=== PATIENT | female | born 1955 | race Caucasian/White ===

== ENCOUNTER 2017-09-03 16:55 | Emergency (ER) | payer SELFPAY ==
[~2017-09-03] VITALS: Ht 157.5 cm; Wt 60.0 kg
[2017-09-03 17:03] VITALS: BP 172/91; PULSE 83; RESP 17; TEMP 98.6; O2SAT 100
--- NOTE | 2017-09-03 17:12 | PD ---
HPI Chief Complaint: Fall Time Seen by Provider: 17:05 Travel History International Travel<30 days: No Contact w/Intl Traveler<30days: No Traveled to known affect area: No History of Present Illness HPI 62-year-old female presents emergency department following a trip and fall. Patient states that her foot got caught and she tripped and fell. She did fall , striking her head. She did not lose consciousness. She does report left hip pain. She did strike the left side of her head. She denies any nausea or vomiting. She denies any chest pain or tightness. Patient does report the pain as a moderate, constant pain. It does not radiate anywhere. She denies any other symptoms at this time. [facility] Past Medical History Medical History: Denies Significant Hx ?: Unknown Social History Tobacco Use: No Allergies-Medications (Allergen,Severity, Reaction): Coded Allergies: No Known Allergies (Unverified , 09/03/17) Reported Meds & Prescriptions Reported Meds & Active Scripts Active Robaxin (Methocarbamol) 500 Mg Tab 500 Mg PO QID PRN Ibuprofen 600 Mg Tab 600 Mg PO Q8H PRN Reported Hydrochlorothiazide 25 Mg Tab 25 Mg PO DAILY Review of Systems Except as stated in HPI: all other systems reviewed are Neg Physical Exam Narrative GENERAL: Well-nourished, well-developed elderly female patient in no acute distress SKIN: Focused skin assessment warm/dry. HEAD: Normocephalic. Abrasion/hematoma to the left temporal scalp EYES: No scleral icterus. No injection or drainage. EOMI. PERRLA NECK: Supple, trachea midline. No JVD or lymphadenopathy. CARDIOVASCULAR: Regular rate and rhythm RESPIRATORY: Breath sounds equal bilaterally. No accessory muscle use. GASTROINTESTINAL: Abdomen soft, non-tender, nondistended. MUSCULOSKELETAL: No cyanosis, or edema. 5+ strength equal bilateral extremities. Tenderness elicited palpation over the anterior lateral left hip. No deformity. No shortening or rotation. Distal pulses are palpable. Cap refills within normal limits. BACK: Nontender without obvious deformity. No CVA tenderness. Data Data Last Documented VS Vital Signs Date Time Temp Pulse Resp B/P (MAP) Pulse Ox O2 Delivery O2 Flow Rate FiO2 09/03/17 21:40 09/03/17 18:46 75 18 98 Room Air 09/03/17 17:03 98.6 Orders Orders Hip, Uni(Ap&Lat) W Ap Pelvis (09/03/17 ) Ct Brain W/O Iv Contrast(Rout) (09/03/17 ) Ct Cerv Spine W/O Contrast (09/03/17 ) Ketorolac Inj (Toradol Inj) (09/03/17 17:45) Sodium Chlorid 0.9% 500 Ml Inj (Ns 500 M (09/03/17 17:45) Acetaminophen (Tylenol) (09/03/17 18:45) Ed Discharge Order (09/03/17 18:34) MDM Medical Decision Making Medical Screen Exam Complete: Yes Emergency Medical Condition: Yes Medical Record Reviewed: Yes Differential Diagnosis Fracture versus contusion versus dislocation versus intracranial hemorrhage versus concussion versus skull fracture Narrative Course 62-year-old female presents emergency department for evaluation following a trip and fall. Patient appears without distress. Her vital signs are stable. Last Impressions Hip and Pelvis X-Ray 09/03/17 0000 Signed Impressions: CONCLUSION: Negative for acute process. Head CT 09/03/17 0000 Signed Impressions: CONCLUSION: No acute intracranial abnormality is identified. Cervical Spine CT 09/03/17 0000 Addendum Impressions: CONCLUSION: 1. Mild degenerative changes about fracture. 2. Lung apex clear. Diagnosis Primary Impression: Minor head injury Qualified Codes: S09.90XA - Unspecified injury of head, initial encounter Additional Impression: Fall Qualified Codes: W19.XXXA - Unspecified fall, initial encounter Referrals: Primary Care Physician Patient Instructions: General Instructions, Head Injury (ED) Departure Forms: Tests/Procedures, Work Release Enter return to work date: Sep 06, 2017 Additional Instructions: Ice to the affected area. Avoid direct contact with your skin Follow-up with a primary care provider Rest Avoid prolonged bedrest Return immediately to emergency department with any acute worsening symptoms Med/Other Pt SpecificInfo: Prescription(s) given Scripts Methocarbamol (Robaxin) 500 Mg Tab 500 MG PO QID Y for MUSCLE SPASM, #20 TAB 0 Refills Prov: Jeanette Ascencio 09/03/17 Ibuprofen (Ibuprofen) 600 Mg Tab 600 MG PO Q8H Y for PAIN, #30 TAB 0 Refills Prov: Jeanette Ascencio 09/03/17 Disposition: 01 DISCHARGE HOME Condition: Stable Jeanette Ascencio September 03, 2017 17:12
[2017-09-03] MEDS ORDERED: KETOROLAC TROMETHAMINE 30 MG/ML (IVP) VIAL IV PUSH ONE (17:45)
[2017-09-03] MEDS ORDERED: SODIUM CHLORID 0.9% 500 ML INJ 500 ML IV ONE (17:45)
[2017-09-03] MEDS ORDERED: HYDR25TA5 PO (17:49)
--- NOTE | 2017-09-03 17:58 | RADRPT ---
EXAM DATE: 09/03/2017 5:45 PM EDT AGE/SEX: 62 years / Female INDICATIONS: Fall, pain in left hip. CLINICAL DATA: This is the patient's initial encounter. Patient reports that signs and symptoms have been present for 1 day and indicates a pain score of 3/10. MEDICAL/SURGICAL HISTORY: None. None. COMPARISON: No prior [facility] exams available for comparison. FINDINGS: Bony structures are intact and in normal alignment. Generative changes in both SI joints. Joints are intact without dislocation or significant arthropathy. Osseous density is normal. Soft tissues are unremarkable. No radiopaque foreign bodies seen. CONCLUSION: Negative for acute process. Electronically signed by: Fernando Freedman MD 09/03/2017 5:57 PM EDT
--- NOTE | 2017-09-03 18:03 | RADRPT ---
EXAM DATE: 09/03/2017 5:58 PM EDT AGE/SEX: 62 years / Female INDICATIONS: Trauma; fall. CLINICAL DATA: This is the patient's initial encounter. Patient reports that signs and symptoms have been present for 1 day and indicates a pain score of 5/10. MEDICAL/SURGICAL HISTORY: None. None. RADIATION DOSE: 34.83 CTDI (mGy) COMPARISON: No prior [facility] exams available for comparison. TECHNIQUE: CT of the head without contrast. Using automated exposure control and adjustment of the mA and/or kV according to patient size, radiation dose was kept as low as reasonably achievable to ob tain optimal diagnostic quality images. FINDINGS: Cerebrum: There is mild generalized atrophy and ventricles are normal given the degree of atrophy. M ild periventricular white matter change is present. No midline shift, mass lesion, hemorrhage or acu te infarction. No extraaxial fluid collections are seen. Posterior Fossa: The cerebellum and brainstem demonstrate no acute abnormality. The 4th ventricle is midline. The cerebellopontine angle is within normal limits. Extracranial: The visualized sinuses are clear. Skull: The calvaria is intact. No skull fracture. CONCLUSION: No acute intracranial abnormality is identified. Electronically signed by: Joss Combs MD 09/03/2017 6:01 PM EDT
--- NOTE | 2017-09-03 18:17 | RADRPT ---
EXAM DATE: 09/03/2017 5:59 PM EDT AGE/SEX: 62 years / Female INDICATIONS: Trauma; fall. CLINICAL DATA: This is the patient's initial encounter. Patient reports that signs and symptoms have been present for 1 day and indicates a pain score of 5/10. MEDICAL/SURGICAL HISTORY: None. None. RADIATION DOSE: 18.11 CTDI (mGy) COMPARISON: No prior [facility] exams available for comparison. TECHNIQUE: Contiguous axial images were obtained using helical multirow detector technique. The vol umetric data was post-processed with multiplanar reconstruction in oblique axial, sagittal, and coron al planes. Using automated exposure control and adjustment of the mA and/or kV according to patient s ize, radiation dose was kept as low as reasonably achievable to obtain optimal diagnostic quality beth ges. FINDINGS: There are mild degenerative changes at C1-C2. C2-C3: Negative for fracture or degenerative changes. C3-C4: Mild disc bulging without fracture or spinal stenosis. C4-C5: Disc neural foramen and facets unremarkable. C5-C6: Very minimal uncinate ridging without spinal stenosis or neural foraminal encroachment. C6-C7: Mild uncinate ridging without significant spinal stenosis or neural foraminal encroachment. Lung apex is clear. CONCLUSION: 1. Mild degenerative changes about fracture. 2. Lung apex clear. Electronically signed by: Fernando Freedman MD 09/03/2017 6:15 PM EDT
[2017-09-03] MEDS ORDERED: ROBA500T PO (18:37)
[2017-09-03] MEDS ORDERED: IBUP-232 PO (18:37)
[2017-09-03] MEDS ORDERED: ACETAMINOPHEN 325 MG TAB PO ONE (18:45)
[2017-09-03 18:46] VITALS: BP 163/79; PULSE 75; RESP 18; O2SAT 98
== END 2017-09-03 21:48 | disposition home or self-care (01) ==
LOC: NEPE 16:55
DX: S09.90XA Unspecified injury of head, initial encounter (principal); M25.552 Pain in left hip; W01.0XXA Fall on same level from slipping, tripping and stumbling without subsequent striking against object, initial encounter
CPT/HCPCS: 70450; 72125; 73502